=== PATIENT | male | born 1985 | race Caucasian/White ===

== ENCOUNTER 2021-02-26 21:31 | Emergency (ER) | payer SELFPAY ==
[~2021-02-26] VITALS: Ht 182.9 cm; Wt 104.5 kg
[~2021-02-26 21:31] MED LIST: LORTAB 5/500 501 TAB PO; NO HOME MEDICATIONS; tussionex PO
[2021-02-26 21:45] VITALS: TEMP 98.2
[2021-02-26] MEDS ORDERED: CEPHALEXIN500 M1 PO (23:45)
[2021-02-27 00:50] VITALS: BP 133/79; PULSE 92
== END 2021-02-27 00:54 | disposition home or self-care (01) ==
LOC: COL.ER 21:31
DX: S71.112A Laceration without foreign body, left thigh, initial encounter (principal); S20.219A Contusion of unspecified front wall of thorax, initial encounter; F17.210 Nicotine dependence, cigarettes, uncomplicated; V86.06XA Driver of dirt bike or motor/cross bike injured in traffic accident, initial encounter
CPT/HCPCS: J0690; J3010; J7030